=== PATIENT | female | born 1980 | race Caucasian/White ===

== ENCOUNTER 2023-03-04 04:06 | Emergency (ER) | payer MEDICAID, SELFPAY ==
--- NOTE | 2023-03-04 04:00 | DI.RAD_ITS ---
Exam(s) XR HAND LT COMPLETE EXAM: XR HAND LT COMPLETE CLINICAL HISTORY: dog bite to hand, r/o fx. TECHNIQUE: 2D digital imaging was performed. COMPARISON: No exams were available for comparison FINDINGS: 3 views There is soft tissue swelling over the dorsal aspect of the hand. There is a fastener device in the base of the proximal phalanx of the thumb on its medial aspect, mos t probably related to prior ulnar collateral ligament repair. There are no fractures. With the exception of the thumb, all of the fingers are held in flexion at t he level of the PIP joints. No osseous lesions nor erosions evident. Metacarpophalangeal joints laverne ear unremarkable. No radiopaque foreign body. No radiographic evidence of osteomyelitis. Carpal ro w bones appear unremarkable. IMPRESSION: No acute fractures but findings as above. Recommend follow-up MRI. There is evidence of previous ulnar collateral ligament injury repair in the thumb. DATA REPOSITORY: RADIATION DOSE DELIVERED:
[2023-03-04 04:08] VITALS: BP 113/87; PULSE 97; RESP 16; TEMP 36.8; O2SAT 100
--- NOTE | 2023-03-04 04:13 | W.ED.GENAD ---
Discharge Plan Disposition Patient Disposition: Home Condition: Good Discharge Details Clinical Impression: Dog bite of left hand Primary Care Provider: Shoaib Lloyd ED Provider: Alejo Nunez Home Meds and New Rx's Prescriptions: New amoxicillin-pot clavulanate 875-125 mg tablet 1 tab PO BID Qty: 20 0RF No Action methadone 10 MG/ML concentrate 65 mg PO DAILY methocarbamol 500 MG tablet 2 tab PO Q8H PRN PRNQty: 20 0RF meloxicam 7.5 MG tablet 7.5 mg PO DAILY Qty: 10 0RF Rx Instructions: PT NOT TAKING Discharge Instructions Instructions: Animal Bite (ED) Additional Instructions: At this time the x-ray shows no evidence of fracture in your hand. Please take Tylenol and Motrin as needed for pain. Please ice it frequently. There is a high risk of infection with dog bites, so please take the antibiotic as directed and do not miss doses. There will be some oozing and pus that likely comes from the lesion, please wash the hand daily with soap and water. If you notice redness streaking up your hand or arm please return immediately. If you notice any worsening of your symptoms, or any new symptoms such as vomiting, diarrhea, fever, chills, shortness of breath, chest pain, numbness, weakness, or fainting , please return immediately to the emergency department for reevaluation. Please follow up with your primary care provider as soon as possible for reassessment and reevaluation. As always, it was a pleasure participating in your medical care today. Referrals: Shoaib Lloyd [Primary Care Provider] - Medical Decision Making 42-year-old female who is right-hand dominant presents today for dog bite on the left hand. Patient states that at 7 PM last night she was breaking up a dog fight when she was bit. Both dogs were known to the person, and both dogs had their rabies vaccine up-to-date per patient. Patient's last tetanus shot was within the last 5 years per patient. She developed immediate pain in her left hand. She washed the hand. She is coming in later this evening for further assessment. Pain is made worse with movement, improved by nothing. She has had some mild oozing of blood from the bite walton. She denies numbness or tingling. Exam demonstrates 3-4 bite puncture wounds on the dorsal aspect of the hand. Mild to moderate swelling over the dorsal aspect of the mid hand. No tenderness or injury to the fingers. Pain with movement of the finger secondary to the impact on the hand. Tetanus is up-to-date. We will give Augmentin here and a prescription for home use. We will wash the hand. No indication for suturing for the puncture wounds at this time. We will get an x-ray to rule out fracture. 4:45 AM X-ray negative for fracture. There is a small metal foreign body, but this is at her previous surgical site on her thumb, there was no dog bite injury in that area. No other evidence of foreign body otherwise. Patient feels well. She has been given antibiotics. Tetanus is up-to-date. Patient will be discharged. Discussed red flags for which to return. I have extensively reviewed the treatment plan and discharge instructions with the patient. I have addressed all patient concerns at this time. The patient was made aware of what symptoms to monitor for that would warrant a return to the emergency department. Discussed the plan with the patient, they demonstrate verbal understanding and agreement with our assessment and plan at this time. The documentation in this chart was dictated using [employer] dictation software. Please excuse any dictation errors. HPI General Date/Time Provider Initiated Documentation: 03/04/23 04:07. HPI Narrative: 42-year-old female who is right-hand dominant presents today for dog bite on the left hand. Patient states that at 7 PM last night she was breaking up a dog fight when she was bit. Both dogs were known to the person, and both dogs had their rabies vaccine up-to-date per patient. Patient's last tetanus shot was within the last 5 years per patient. She developed immediate pain in her left hand. She washed the hand. She is coming in later this evening for further assessment. Pain is made worse with movement, improved by nothing. She has had some mild oozing of blood from the bite walton. She denies numbness or tingling. Related Data Home Medications Medication Instructions Recorded Confirmed methadone 10 mg/mL oral concentrate 65 mg PO DAILY 12/09/14 03/04/23 meloxicam 7.5 mg tablet 7.5 mg PO DAILY ##10 05/20/16 03/04/23 methocarbamol 500 mg tablet 2 tab PO Q8H PRN PRN ##20 05/20/16 03/04/23 amoxicillin 875 mg-potassium 1 tab PO BID #20 tabs 03/04/23 clavulanate 125 mg tablet Previous Rx's Medication Instructions Recorded meloxicam 7.5 mg tablet 7.5 mg PO DAILY ##10 05/20/16 methocarbamol 500 mg tablet 2 tab PO Q8H PRN PRN ##20 05/20/16 amoxicillin 875 mg-potassium 1 tab PO BID #20 tabs 03/04/23 clavulanate 125 mg tablet Allergies Allergy/AdvReac Type Severity Reaction Status Date / Time No Known Allergies Allergy Unverified 03/04/23 04:13 General Stated Complaint: Laceration FLAQUITO: 3 Review of Systems All systems reviewed & are unremarkable except as noted in HPI and below PFSH All Active Problems (Updated 03/04/23 @ 04:43 by Alejo Nunez DO) Dog bite of left hand (Acute) Social History Smoking/Tobacco Use Status: Current every day Smoking risk assessment performed?: Yes Alcohol Intake: current Alcohol Intake frequency: holidays/special occasions only Drug use: Daily Substance use type: former substance user Do you feel safe at home: Yes Do you feel safe in your relationship?: Yes Exam Narrative Exam Narrative: 1.Const: Well-nourished, Well-developed, appearing stated age 2.Eyes: PERRL, no conjunctival injection, and symmetrical lids. 3.ENT: Atraumatic external nose and ears. Moist MM. Neck: Symmetric, trachea midline, No thyromegaly. 4.CVS: +S1/S2, No murmurs or gallops. Peripheral pulses 2+ and equal in all extremities. Brisk capillary refill in all extremities. 5.RESP: Unlabored respiratory effort. Clear to auscultation bilaterally. No wheezes rales or rhonchi 6.GI: Soft, Nontender/Nondistended, No hepatosplenomegaly. No guarding or rebound. 7.MSK: Left hand demonstrates notable tenderness throughout the mid body of the hand. 3-4 scattered bite/tooth walton. No large lacerations. Mildly oozing. Mild bruising and swelling. No pain in fingers or thumb. Movement of fingers and thumb is limited secondary to pain and hand over the second third fourth and fifth metacarpals. No pain in the wrist or forearm. 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 Sensation grossly intact, no focal neurologic deficits. 10.Psych: (AAO) x3. Appropriate mood and affect Course Vital Signs Vital signs: Vital Signs Temperature 36.8 C 03/04/23 04:08 Pulse 97 H 03/04/23 04:08 Respiratory Rate 16 03/04/23 04:08 Blood Pressure 113/87 03/04/23 04:08 Pulse Oximetry 100 03/04/23 04:08 Temperature 36.8 C 03/04/23 04:08 Pulse 97 H 03/04/23 04:08 Respiratory Rate 16 03/04/23 04:08 Blood Pressure 113/87 03/04/23 04:08 Pulse Oximetry 100 03/04/23 04:08 Pain Level 10 03/04/23 04:08
[2023-03-04] MEDS: Acetaminophen 500 MG TAB 1000 MG PO (04:20)
[2023-03-04] MEDS: Amoxicillin 875/Clav. 125 TAB PO (04:21)
[2023-03-04] MEDS: Amox. 875/Clav. 125, 2 TABS/BTL 1 TAB PO (04:21)
[2023-03-04] MEDS: Ibuprofen 800 MG TAB PO (04:22)
--- NOTE | 2023-03-04 04:46 | DI.VRAD_ITS ---
PROCEDURE INFORMATION: Exam: XR Left Hand Exam date and time: 03/04/2023 4:22 AM Age: 42 years old Clinical indication: Injury or trauma; Other: Dog bite to hand, R/O FX; Puncture; Left TECHNIQUE: Imaging protocol: Radiologic exam of the left hand. Views: 3 or more views. COMPARISON: No relevant prior studies available. FINDINGS: Bones/joints: No discernible fracture. Soft tissues: There is a metallic density foreign body in the proximal aspect of the proximal phalanx of thumb which is presumably due to prior surgical repair. IMPRESSION: No discernible fracture. Dictated and Authenticated by: Ryan Patel MD. Ordering:JAVI Dhillon MD
== END 2023-03-04 04:54 | disposition home or self-care (01) ==
PROVIDERS: Emergency Provider Student in an Organized Health Care Education/Training Program; PCP Internal Medicine
DX: S61.452A Open bite of left hand, initial encounter (principal); W54.0XXA Bitten by dog, initial encounter; Y93.K9 Activity, other involving animal care; Y92.89 Other specified places as the place of occurrence of the external cause; Y99.9 Unspecified external cause status; F17.210 Nicotine dependence, cigarettes, uncomplicated
CPT/HCPCS: 99283; 73130

== ENCOUNTER 2023-03-07 17:09 | Outpatient (REF) | payer MEDICAID, SELFPAY ==
--- OUTSIDE RECORDS SUMMARY | 2023-03-07 17:12 | XMS_ITS | CCD ---
Author Name Unknown Address [address] [place] [address] [id number] Organization Unknown Address [address] [place] [address] [phone] Care Team Providers Care Telehealth Director Name Role Phone GRAHAM MITCHELL Attending Physician [phone] GRAHAM MITCHELL Er Physician 1 [phone] SARAI Urbina Registered Nurse [phone] Vital Signs Vital Sign Value Unit Date/Time Recent/Initial ? BMI (Body Mass Index) 22.46 kg/m^2 02/18/2023 13: 25 Initial VS Weight Measured 135 lbs 02/18/2023 13:25 Ini tial VS Height 65 in 02/18/2023 13:25 Initial VS BSA (Body Surface Area) 1.68 m^2 02/18/2023 1 3:25 Initial VS BP Systolic 133 mmHg 02/18/2023 13:25 Initial VS BP Diastolic 85 mmHg 02/18/2023 13:25 Initia l VS Respiratory Rate 16 bpm 02/18/2023 13:25 In itial VS Heart Rate 58 bpm 02/18/2023 13:25 Initial VS O2 % BldC Oximetry 97 % 02/18/2023 13:25 Initial VS Body Temperature 35.4 degrees 02/18/2023 13:25 In itial VS Allergies Allergy Code Allergy Type Reaction Status No Known Allergies 0 No known allergies Active Procedures Unknown or Not Available. History of Immunizations Unknown or Not Available. Problems Problem Code Start Date Resolved Date Status Hypothyroidism 82020499 Active Results BASIC METABOLIC PANEL (BMP) - Collect Date/Time: 02/18/2023 13:54 Test Name Code Test Result Test Units Test Ref Rang e GLUCOSE 2345-7 84 mg/dL L=70 H=116 BUN 3094-0 15 mg/dL L=6 H=25 CREATININE 2160-0 1.21 mg/dL L=0.51 H=0.95 SODIUM SERUM 2951-2 135 mmol/L L=136 H=145 POTASSIUM SERUM 2823-3 4.3 mmol/L L=3.4 H=5 .2 CHLORIDE SERUM 2075-0 97 mmol/L L=96 H=110 CARBON DIOXIDE (CO2) 2028-9 29 mmol/L L=22 H=34 ANION GAP 64479-7 8.9 mmol/L CALCIUM SERUM 10014-2 9.2 mg/dL L=8.2 H=10. 2 AGE 42 years eGFR (non-Afr.Amer.) 53475-4 49 mL/min eGFR (Afr-Citizen Of [place]) 18359-4 59 mL/min CBC W/ DIFFERENTIAL* - Colle ct Date/Time: 02/18/2023 13:54 Test Name Code Test Result Test Units Test Ref Rang e WBC 6690-2 10.46 th/cmm L=5.00 H=10.00 NEUT % 63.8 % L=40.0 H=80.0 LYMPH % 20.5 % L=10.0 H=50.0 MONO % 42602-9 8.5 % L=2.0 H=12.0 EOS % 5.8 % L=0.0 H=8.0 BASO % 1.1 % L=0.0 H=3.0 IG % 2514-8 0.3 % L=0.0 H=1.1 NRBC % 12154-4 0.0 % L=0.0 H=0.0 NEUT abs count 751-8 6.7 th/cmm L=1.6 H=8. 4 LYMPH abs count 731-0 2.1 th/cmm L=1.5 H=4 .0 MONO abs count 742-7 0.9 th/cmm L=0.2 H=1. 0 EOS abs count 711-2 0.6 th/cmm L=0.0 H=0.5 BASO abs count 704-7 0.1 th/cmm L=0.0 H=0. 2 IG abs count 94132-9 0.0 th/cmm L=0.0 H=0.1 NRBC abs count 43953-1 0.0 mil/cmm L=0.0 H=0. 0 RBC 789-8 4.24 mil/cmm L=3.90 H=5.40 HEMOGLOBIN 718-7 12.6 gm/dL L=12.0 H=16.0 HEMATOCRIT 4544-3 39 % L=37 H=47 MCV 787-2 92 fL L=82 H=92 MCH 785-6 29.7 pg L=27.0 H=31.0 MCHC 786-4 32.2 % L=32.0 H=36.0 RDW-SD 788-0 51.3 fL L=39.0 H=49.0 PLATELET COUNT 777-3 174 th/cmm L=150 H=45 0 Active Medications Unknown or Not Available. Medications Administered During Visit Medication Dose Units Frequency Route Date/Time of Last Dose KETOROLAC INJ SDV: 30MG/1ML 30 MG X1 IV P 02/18/2023 14:27 Encounters Encounter Diagnosis Diagnosis Code Start Date Pain in thoracic spine 462688831 Social History Smoking Status Code Start Date End Date Current every day smoker [id number] Patient Decision Aids Unknown or Not Available. Discharge Instructions You were admitted to [facility] on 02/18/2023 12:55 with a principal diagnosis of Pain in thoracic spine You had the following tests done:BASIC METABOLIC PANEL (BMP)CBC W/ DIFFERENTIAL* You were discharged from [facility] on 02/18/2023 15:15 Should you have any questions prior to discharge, please contact a member of your healthcare team. If you have left the hospital and have any questions, please contact your primary care physician. Chief Complaint and Reason For Visit Chief Complaint Date of Onset BACK PAIN WHEN BREATHING Function Status Unknown or Not Available. Plan of Care Unknown or Not Available. Referral/Transition of Care Unknown or Not Available.
[2023-03-09 13:12] LABS: Chlamydia Result Negative (Negative); GC Result Negative (Negative)
== END 2023-03-07 17:10 | disposition home or self-care (01) ==
LOC: NCHCN 17:09
PROVIDERS: PCP Internal Medicine; Visit Provider Family Medicine
DX: Z11.3 Encounter for screening for infections with a predominantly sexual mode of transmission (principal)
CPT/HCPCS: 87491; 87591

== ENCOUNTER 2023-03-08 10:45 | Outpatient (CLI) | payer MEDICAID, SELFPAY ==
[2023-03-08 10:26] LABS: HGB 13.5 g/dL (11.2-15.7); MCH 29.9 pg (27.0-33.0); MCHC 32.9 % (32.0-36.0); MCV 91 fL (80-95); MPV 9.6 fL (8.0-11.0); Platelet Count 214 10^3/uL (130-400); RBC 4.51 10^6/uL (3.93-5.22); RDW 14.8 % (11.7-14.6); RDW-SD 49.7 fL; WBC 12.41 10^3/uL (4.4-10.8)
[2023-03-08 13:38] LABS: ALT 37 U/L (14-59); AST 45 U/L (15-37); Albumin 4.1 g/dL (3.4-5.0); Alkaline Phosphatase 79 U/L (46-116); Anion Gap 9.5 mmol/L (3-11); BUN 22 mg/dL (7-18); Bilirubin, Direct 0.2 mg/dL (0.0-0.2); Bilirubin, Total 0.4 mg/dL (0.2-1.0); CO2 26.5 mmol/L (21.0-32.0); CREATININE 1.3 mg/dL (0.55-1.02); Calcium 9.2 mg/dL (8.5-10.1); Chloride 100 mmol/L (98-107); Estimated GFR 52.98 (mL/min/1.73m2); Glucose 83 mg/dL (74-106); Potassium 4.1 mmol/L (3.5-5.1); Sodium 136 mmol/L (136-145); Total Protein 8.5 g/dL (6.4-8.2)
[2023-03-08 14:04] LABS: Calculated LDL 119 mg/dL (<100); Cholesterol 188 mg/dL (<200); HDL Cholesterol 50 mg/dL (40-60); Triglyceride 96 mg/dL (<150)
[2023-03-08 14:08] LABS: TSH 125.61 uIU/mL (0.36-3.74)
[2023-03-09 10:15] LABS: HIV-1/2 Ag & Ab Screen Negative (Negative)
== END 2023-03-08 10:46 | disposition home or self-care (01) ==
LOC: LBO 10:51
PROVIDERS: PCP Internal Medicine; Visit Provider Family Medicine
DX: Z00.00 Encounter for general adult medical examination without abnormal findings (principal)
CPT/HCPCS: 36415; 80053; 80061; 80076; 85027; 87389; 84443

== ENCOUNTER 2023-03-15 16:08 | Outpatient (REF) | payer MEDICAID, SELFPAY ==
--- NOTE | 2023-03-15 15:00 | PAPFT_PTH ---
PATIENT: Keiko Martines LOC: [facility] U#:[id number] AGE/SX: 42/F ROOM: RE03/15/[address]: GRACIE: 1980 BED: DIS: 03/15/2023 SPEC #: [id number] RECD: 03/16/23 12:51 STATUS: VENICE SAAVEDRA #: [id number] DANIELLE: 03/15/23 15:[address]: Fidelia Gross DEPT: [facility] Cytology RECD BY: Valery Sheikh ENTERED: 03/16/23 12:51 SP TYPE: PAPFT OTHR DR: Shoaib Lloyd Tissues: 1 - CX/ENDOCX FOR PAP SMEARS Procedures: PAP THIN PREP/[facility] Screening HPV DNA PROBE Comments: [id number] (CHLAMYDIA/GC)
[2023-03-17 09:36] LABS: HBs Antibody, Quant <3.1 mIU/mL (See Note); Hepatitis B Surface Ab Negative (See Note)
[2023-03-17 09:48] LABS: Hepatitis B Surface Ag Negative (Negative)
[2023-03-17 10:28] LABS: Hep B Core Antibody Negative (Negative)
[2023-03-17 10:50] LABS: Hepatitis C Ab w Rflx HCV PCR Reactive (Negative)
[2023-03-17 14:59] LABS: Chlamydia Result Negative (Negative); GC Result Negative (Negative)
[2023-03-20 11:57] LABS: HCV RNA Detection Quantitative 35600 IU/mL (Undetected); HCV RNA Qualitative Detected (Undetected)
== END 2023-03-15 16:09 | disposition home or self-care (01) ==
LOC: LBN 16:08
PROVIDERS: PCP Internal Medicine; Visit Provider Family Medicine
DX: E03.9 Hypothyroidism, unspecified (principal); F11.10 Opioid abuse, uncomplicated; N89.8 Other specified noninflammatory disorders of vagina; B19.20 Unspecified viral hepatitis C without hepatic coma; Z11.3 Encounter for screening for infections with a predominantly sexual mode of transmission; Z12.4 Encounter for screening for malignant neoplasm of cervix
CPT/HCPCS: 86704; 86706; 86803; 87340; 87491; 87522; 87591; 88142; 87480; 87510; 87624; 87660

== ENCOUNTER 2023-09-11 08:57 | Emergency (ER) | payer MEDICAID, SELFPAY ==
[2023-09-11 08:59] VITALS: BP 157/117; PULSE 91; RESP 18; TEMP 37.2; O2SAT 100
--- NOTE | 2023-09-11 09:22 | W.ED.GENAD ---
HPI General Date/Time Provider Initiated Documentation: 09/11/23 09:21. Limitations to Documentation: no limitations. Information obtained by: patient. HPI Narrative: 42-year-old female with past medical history of hypothyroidism, chronic IV drug abuse presents for evaluation of arm wounds. About 1 month ago she was admitted to the hospital for cellulitis of her arm. At that time she left AGAINST MEDICAL ADVICE. She now is participating in a sobriety program and is on methadone. She reports that her sponsor is concerned that she left AGAINST MEDICAL ADVICE and is wanting her to get reevaluated. She has been having a slight cough. Denies any fever. Reports occasional intermittent drug use. Denies any redness or swelling of her arms and denies any drainage. Related Data Home Medications Medication Instructions Recorded Confirmed methadone 10 mg/mL oral concentrate 40 mg PO DAILY 12/09/14 09/11/23 levothyroxine 200 mcg capsule 200 mcg PO DAILY 3 months #90 caps 09/11/23 Previous Rx's Medication Instructions Recorded levothyroxine 200 mcg capsule 200 mcg PO DAILY 3 months #90 caps 09/11/23 Allergies Allergy/AdvReac Type Severity Reaction Status Date / Time No Known Allergies Allergy Unverified 09/11/23 09:02 General Stated Complaint: Cellulitis FLAQUITO: 3 Exam Narrative Exam Narrative: Review of Systems: All systems reviewed & are unremarkable except as noted in HPI and below Well-developed, no acute distress NCAT PERRL, normal conjunctiva Periorbital edema RRR, no murmurs rubs or gallops Unlabored respiratory effort, clear breath sounds bilaterally Nondistended abdomen Extremities w/o deformity, no cyanosis, no edema Multiple track walton in bilateral upper extremities, no evidence of cellulitis, no signs of induration or abscess no focal neurologic deficits Appropriate mood and affect Course Vital Signs Vital signs: Vital Signs Temperature 37.2 C 09/11/23 08:59 Pulse 91 H 09/11/23 08:59 Respiratory Rate 18 09/11/23 08:59 Blood Pressure 157/117 H 09/11/23 08:59 Pulse Oximetry 100 09/11/23 08:59 Temperature 37.2 C 09/11/23 08:59 Temperature Source Skin 09/11/23 08:59 Pulse 91 H 09/11/23 08:59 Respiratory Rate 18 09/11/23 08:59 Blood Pressure 157/117 H 09/11/23 08:59 Blood Pressure Position Sitting 09/11/23 08:59 Pulse Oximetry 100 09/11/23 08:59 Oxygen Delivery Method Room Air 09/11/23 08:59 Oxygen Flow Rate 0 09/11/23 08:59 Pain Level 4 09/11/23 08:59 Lab/Test Results Lab/Test Results: 09/11/23 09:21 Blood Blood Culture - Pending 09/11/23 09:21 Blood Blood Culture - Pending Medical Decision Making Emergent evaluation of polysubstance abuse. Patient recently treated for arm cellulitis, but left AGAINST MEDICAL ADVICE. That was over a month ago. Records from that hospital have been requested. At this time the patient does not have any signs of active infection. Have a low suspicion for endocarditis. Her wounds on her extremities appear to be healing appropriately and did not appear to be acutely infected. However given her recent sobriety and treatment plan, will evaluate lab work. I am also concerned for her periorbital edema. This could indicate heart failure, thyroid dysfunction. No signs of trauma. Lab work reviewed, she does have a mild leukocytosis. No anemia. Her creatinine is slightly elevated. I reviewed the blood work from the outside hospital and noted a significantly higher white blood cell count, so today's value is improving. Reviewed prior creatinines and this appears to be baseline. She has significant derangement of her TSH and free T4. I discussed with endocrinology at [facility]. At this time, the patient is not having any symptoms concerning for myxedema coma. I have provided the patient a prescription for levothyroxine with strict instructions that she must take this medication. She has been placed on referral for primary care for follow-up and management of her hypothyroidism with repeat lab work check in 4 to 6 weeks. Return precautions advised. At this time I do not feel that she needs any medical treatment for skin infections and that these injection wound are stable. Medical Records Medical records reviewed: Yes I reviewed the patient's medical records. Lab Data Lab results reviewed: Yes I reviewed the patient's lab results. Quality:SDOH Health Related Social Needs: No Data to Display PFSH All Active Problems (Updated 09/11/23 @ 12:26 by Randa Bowden MD) IVDU (intravenous drug user) (Acute) Leukocytosis (Acute) Hypothyroidism (Chronic) Periorbital swelling (Acute) Social History Smoking/Tobacco Use Status: Current every day Tobacco Type: cigarettes Smoking risk assessment performed?: Yes Alcohol Intake: current Alcohol Intake frequency: holidays/special occasions only Drug use: Daily Substance use type: former substance user, heroin, opiates and IV drugs Housing: apartment Do you feel safe at home: Yes Do you feel safe in your relationship?: Yes Discharge Plan Disposition Patient Disposition: Home Discharge Details Clinical Impression: Periorbital swelling, Hypothyroidism, Leukocytosis, IVDU (intravenous drug user) Primary Care Provider: Shoaib Lloyd ED Provider: Randa Bowden Home Meds and New Rx's Prescriptions: New levothyroxine 200 mcg capsule 200 mcg PO DAILY 90 Days Qty: 90 0RF No Action methadone 10 MG/ML concentrate 40 mg PO DAILY Discharge Instructions Instructions: Hypothyroidism (ED) Additional Instructions: Please start your thyroid medication daily. If you do not start this medication you could have serious problems. Please continue to follow-up with [facility] for your sobriety treatment Discharge Data Discharge Date/Time-TO BE ENTERED AT DEPARTURE: 09/11/23 12:49
[2023-09-11 10:10] LABS: Abs Immature Grans 0.08 10^3/uL (0.0-0.06); Absolute Basophil Count 0.15 10^3/uL (0.0-0.2); Absolute Eosinophil Count 1.86 10^3/uL (0.0-0.7); Absolute Lymphocyte Count 2.46 10^3/uL (1.2-3.4); Absolute Monocyte Count 0.91 10^3/uL (0.1-0.8); Absolute Neutrophil Count 7.86 10^3/uL (1.2-6.7); Basophils % 1.1; HCT 37.1 % (36.0-46.0); HGB 12.3 g/dL (11.2-15.7); Immature Grans % 0.6; Lymphocytes % 18.5; MCHC 33.2 % (32.0-36.0); MCV 91 fL (80-95); MPV 9.4 fL (8.0-11.0); Monocytes % 6.8; Platelet Count 215 10^3/uL (130-400); RDW 14.6 % (11.7-14.6); RDW-SD 48.3 fL; WBC 13.32 10^3/uL (4.4-10.8)
[2023-09-11 10:38] LABS: ALT 64 U/L (14-59); AST 109 U/L (15-37); Albumin 3.6 g/dL (3.4-5.0); Alkaline Phosphatase 79 U/L (46-116); Anion Gap 7.8 mmol/L (3-11); BUN 13 mg/dL (7-18); Bilirubin, Total 0.3 mg/dL (0.2-1.0); CO2 29.2 mmol/L (21.0-32.0); CREATININE 1.2 mg/dL (0.55-1.02); Calcium 9.3 mg/dL (8.5-10.1); Chloride 98 mmol/L (98-107); Estimated GFR 58.32 (mL/min/1.73m2); Glucose 91 mg/dL (74-106); NT-proBNP 117 pg/mL (<300); Sodium 135 mmol/L (136-145); Total Protein 8.6 g/dL (6.4-8.2)
[2023-09-11 10:42] LABS: HCG Quant, Pregnancy < 1 mIU/mL (1-3)
[2023-09-11 10:49] LABS: Procalcitonin < 0.1 ng/mL
--- NOTE | 2023-09-11 10:51 | DI.RAD_ITS ---
Exam(s) XR CHEST 2V PA LATERAL EXAM: XR CHEST 2V PA LATERAL CLINICAL HISTORY: cough. TECHNIQUE: 2D digital imaging was performed. COMPARISON: No exams were available for comparison FINDINGS: 2 views: Heart size is normal. The mediastinum is not widened. Lungs are clear. No infiltrates nor pleural effusions. There is a fracture of the posterolateral aspect of the left 7th rib, age indeterminate. There is also deformity of the upper right rib cage which is probably related to prior rib fracture. IMPRESSION: No acute pulmonary findings. Left 7th rib fracture. Deformity of the upper right rib cage which is probably related to non recent upper right rib fractur es. DATA REPOSITORY: RADIATION DOSE DELIVERED:
[2023-09-11 11:08] LABS: TSH (W/Ref FT4) 182.52 uIU/mL (0.36-3.74)
[2023-09-11 11:26] LABS: FREE T4 0.15 ng/dL (0.76-1.46)
[2023-09-11 12:09] VITALS: BP 134/95; PULSE 61; TEMP 37.1; O2SAT 98
--- NOTE | 2023-09-11 12:10 | NUR.NOTE ---
Referral given to Care Managers to help Pt locate a new Primary Care Provider for Post Management of Thyroid Dysfunction as soon as possible.
[2023-09-11 12:43] VITALS: TEMP 37
== END 2023-09-11 12:49 | disposition home or self-care (01) ==
PROVIDERS: Emergency Provider Emergency Medicine; PCP Internal Medicine
DX: H05.223 Edema of bilateral orbit (principal); E03.9 Hypothyroidism, unspecified; D72.829 Elevated white blood cell count, unspecified; F11.10 Opioid abuse, uncomplicated; F17.210 Nicotine dependence, cigarettes, uncomplicated
CPT/HCPCS: 80053; 84145; 87040; 99284; 71046; 83880; 84439; 84443; 84702; 85025; 99283